=== PATIENT | female | born 1955 | race Two or more races ===

== ENCOUNTER 2023-05-12 13:03 | Emergency (ER) | payer OTHER ==
[~2023-05-12] VITALS: Ht 147.3 cm; Wt 70.3 kg
[2023-05-12] MEDS ORDERED: COZAAR100 MG PO (13:46)
[2023-05-12] MEDS ORDERED: LIPITOR20 MG PO (13:46)
== END 2023-05-12 17:34 | disposition home or self-care (01) ==
LOC: ER 13:03
DX: K57.30 Diverticulosis of large intestine without perforation or abscess without bleeding (principal); Z88.2 Allergy status to sulfonamides
CPT/HCPCS: 36415; 96365; 99284; J1885